=== PATIENT | female | born 1970 | race Caucasian/White ===

== ENCOUNTER → 2024-03-03 06:26 | Day surgery (SDC) | payer OTHER, SELFPAY | LOC: GI 06:26 | PROVIDERS: ATTENDING PHYSICIAN Internal Medicine Gastroenterology | DX: Z12.11 Encounter for screening for malignant neoplasm of colon (principal); K63.89 Other specified diseases of intestine; K64.0 First degree hemorrhoids; K62.1 Rectal polyp; Z86.010 Personal history of colon polyps | CPT/HCPCS: 45380; 88305 ==

== ENCOUNTER 2024-07-03 08:55 | Emergency (ER) | payer OTHER, SELFPAY ==
[2024-07-03 09:18] VITALS: BP 136/81
[2024-07-03 10:25] LABS: % Basophils 0.3 % (0-2); % Eosinophils 0.3 % (0-6); % Immature Granulocytes 0.4 % (0-0.5); % Lymphocytes 8.1 % (20.5-51.1); % Monocytes 6.4 % (1.7-9.3); % Neutrophils 84.5 % (42.2-75.2); Absolute Immature Granulocytes 0.1 10^3/uL (0-0.05); Absolute Lymphocytes 1.3 10^3/uL (1.2-3.4); Absolute Neutrophils 13.1 10^3/uL (1.4-6.5); Hematocrit 35.8 % (37.0-47.0); Hemoglobin 12.2 g/dL (12.0-16.0); Mean Corp Hgb Conc. 34.1 g/dL (33.0-37.0); Mean Corpuscular Hgb 29.1 pg (27.0-31.0); Mean Corpuscular Volume 85.4 fL (81.0-99.0); Nucleated Red Blood Cells % 0 %; Platelet Count 237 10^3/uL (130-400); Red Blood Cell Count 4.19 10^6/uL (4.20-5.40); Red Cell Dist. Width 15.3 % (11.5-14.5); White Blood Cell Count 15.5 10^3/uL (4.8-10.8)
[2024-07-03 10:34] LABS: Urine Albumin Negative (Neg - Trace); Urine Bilirubin Negative (Negative); Urine Character Clear (Clear); Urine Color Yellow; Urine Glucose Negative (Negative); Urine Ketone Negative (Negative); Urine Leukocyte Negative (Negative); Urine Nitrite Negative (Negative); Urine Occult Blood Negative (Negative); Urine Specific Gravity 1.015 (<1.030); Urine Urobilinogen Negative (Neg - 1+)
[2024-07-03 10:52] LABS: ALT (SGPT) 13 U/L (0-35); AST (SGOT) 16 U/L (14-36); Albumin 4.2 g/dl (3.5-5.0); Alkaline Phosphatase 81 U/L (38-126); Blood Urea Nitrogen 17 mg/dl (7-17); Calcium 8.4 mg/dl (8.4-10.2); Carbon Dioxide 25 mmol/L (22-30); Chloride 98 mmol/L (98-107); Glucose 118 mg/dl (70-99); Potassium 3.5 mmol/L (3.5-5.1); Sodium 133 mmol/L (135-145); Total Bilirubin 1.1 mg/dl (0.2-1.3); eGFR > 60.00
[2024-07-03 11:16] LABS: HCG, Serum Qualitative Screen Negative
--- NOTE | 2024-07-03 11:25 | ED.GENMED ---
History of Present Illness
General
Chief Complaint: Abdominal Pain
Time Seen by Provider: 07/03/24 10:57
History of Present Illness
History of Present Illness:
54-year-old female with history of hypertension presents to the emergency department for evaluation of generalized lower abdominal pain for the past 24 hours. No fevers but does report chills. Denies any diarrhea, nausea, or vomiting. Denies
dysuria or urgency but notes urinary dribbling after completing urination. Prior abdominal surgeries include appendectomy and
Review of Systems
Review of Systems
Allergies reviewed?: Yes
All Other Systems: ROS reviewed and negative except as documented in HPI and ROS
Phy Exam
Physical Exam
Physical Exam:
GEN: Well appearing, NAD, WDWN
HEENT: Oral mucosa moist, no scleral icterus
Cardiac: Regular rate
Lung: No respiratory distress, no tachypnea
Abdomen: Soft, focal tenderness diffusely to the lower abdomen, no rigidity
MSK: No gross deformity or injuries
Skin: Good color, no pallor or jaundice, no rashes
Neuro: AO x3, moves all extremities freely
Psych: Calm, cooperative
Course
Orders/Labs/Results
Orders:
Orders
07/03/24 09:22
Test Result ONCE
07/03/24 09:57
Complete Blood Count/With Diff Urgent
Comprehensive Metabolic Panel Urgent
HCG, Serum Qualitative Screen Urgent
Urinalysis Reflex To Culture Urgent
Date Specimen was Collected: 07/03/24
Time Specimen was Collected: 09:22
07/03/24 11:21
CT Abd/Pel (IV only)-DH only Urgent
Comment:
Reason For Exam: lower abd pain
Abnormal Lab Results
07/03/24
09:57
WBC 15.5 H 10^3/uL
(4.8-10.8)
RBC 4.19 L 10^6/uL
(4.20-5.40)
Hct 35.8 L %
(37.0-47.0)
RDW 15.3 H %
(11.5-14.5)
Abs Immat Gran (auto) 0.1 H 10^3/uL
(0-0.05)
Absolute Neuts (auto) 13.1 H 10^3/uL
(1.4-6.5)
Absolute Monos (auto) 1.0 H 10^3/uL
(0.1-0.6)
Neutrophils % 84.5 H %
(42.2-75.2)
Lymphocytes % 8.1 L %
(20.5-51.1)
Sodium 133 L mmol/L
(135-145)
Glucose 118 H mg/dl
(70-99)
07/03/24 09:57
07/03/24 09:57
Vital Signs
Initial and Last Documented VS:
Initial Vital Signs
Temp Pulse Resp BP Pulse Ox
98.2 F 81 16 136/81 98
07/03/24 09:18 07/03/24 09:18 07/03/24 09:18 07/03/24 09:18 07/03/24 09:18
Last Documented Vital Signs
Temp Pulse Resp BP Pulse Ox
98.2 F 78 18 109/69 99
07/03/24 09:18 07/03/24 11:56 07/03/24 11:56 07/03/24 11:56 07/03/24 11:56
MDM/Problems Addressed
MDM/Problems Addressed:
Patient found to have a large left adnexal cyst. Patient is premenopausal thus this could represent a hemorrhagic ovarian cyst. Did not have sudden worsening or colicky pain to suggest acute torsion. Encouraged to follow-up with her [employer] SUPERVISOR to
discuss outpatient MRI, clinically stable for outpatient management
*Critical Care Note
Total Time (30-74mins, 75-104mins- exclusive of procedures): Not Applicable
ED Attending Note
-
Portions of this chart may have been created with voice recognition software.� Occasional wrong word or��sound alike� substitutions may have occurred due to the inherent limitations of voice recognition software.
Discharge Plan
Departure
Patient Disposition: Home (Routine Discharge)
Date of Disposition: 07/03/24
Time of Disposition: 14:49
Patient with high blood pressure during this ER visit?: No
Discharge Problem:
Mass of left ovary
Instructions: Ovarian Cyst (DC)
Referrals:
Jose R Dangelo MD [Family Provider] -
Alva Brantley MD [Active] -
Activity Restrictions/Additional Instructions:
Your CT scan shows a large cyst/mass in the L ovary area. The severity of this is not yet clear
Call [employer] S[employer] SUPERVISOR immediately for follow up
If you cannot get an urgent appointment, have your primary doctor send you for an abdominal MRI for further evaluation
If your pain SUDDENLY worsens, return to the ER
Interventions
Interventions:
*Risk Screen - Suicide Last Done: 07/03/24 09:18
*General Assessment Last Done: 07/03/24 11:56
*Neglect/Abuse Screening Last Done: 07/03/24 09:18
*ED COVID-19 Vaccine History Last Done: 07/03/24 11:56
*Nursing Disposition Last Done: 07/03/24 15:05
PS-Mnyzyz-Eqkysrylaf Assessment Last Done: 07/03/24 11:56
Discharge Date and Time
Discharge Date/Time: 07/03/24 15:06
Print Language: LITHUANIAN
[2024-07-03 11:56] VITALS: BP 109/69
== END 2024-07-03 15:06 | disposition home or self-care (01) ==
LOC: EMR 08:55
PROVIDERS: Emergency Medicine; EMERGENCY PHYSICIAN Emergency Medicine; FAMILY PHYSICIAN Internal Medicine
DX: N83.202 Unspecified ovarian cyst, left side (principal); I10 Essential (primary) hypertension
CPT/HCPCS: 99284; 74177; 80053; 81003; 84703; 85025; Q9967

== ENCOUNTER 2024-07-10 15:10 | Emergency (ER) | payer OTHER, SELFPAY ==
[2024-07-10 15:13] VITALS: BP 129/96
[2024-07-10 15:45] LABS: % Basophils 0.4 % (0-2); % Eosinophils 1.3 % (0-6); % Immature Granulocytes 0.6 % (0-0.5); % Monocytes 3.4 % (1.7-9.3); % Neutrophils 86.3 % (42.2-75.2); Absolute Eosinophils 0.1 10^3/uL (0-0.7); Absolute Lymphocytes 0.6 10^3/uL (1.2-3.4); Absolute Monocytes 0.2 10^3/uL (0.1-0.6); Hematocrit 31.2 % (37.0-47.0); Hemoglobin 10.6 g/dL (12.0-16.0); Mean Corpuscular Hgb 29.1 pg (27.0-31.0); Mean Corpuscular Volume 85.7 fL (81.0-99.0); Mean Platelet Volume 8.9 fL (7.4-10.4); Nucleated Red Blood Cells % 0 %; Platelet Count 285 10^3/uL (130-400); Red Blood Cell Count 3.64 10^6/uL (4.20-5.40); Red Cell Dist. Width 14.6 % (11.5-14.5)
[2024-07-10 15:57] LABS: Lactic Acid 1.1 mmol/L (0.7-2.0)
[2024-07-10 15:59] LABS: HCG, Serum Qualitative Screen Negative
[2024-07-10 16:03] LABS: ALT (SGPT) 15 U/L (0-35); AST (SGOT) 18 U/L (14-36); Albumin 3.9 g/dl (3.5-5.0); Alkaline Phosphatase 127 U/L (38-126); Blood Urea Nitrogen 14 mg/dl (7-17); Calcium 8.7 mg/dl (8.4-10.2); Carbon Dioxide 22 mmol/L (22-30); Chloride 95 mmol/L (98-107); Glucose 106 mg/dl (70-99); Sodium 129 mmol/L (135-145); Total Bilirubin 0.6 mg/dl (0.2-1.3); Total Protein 6.5 g/dl (6.3-8.2); eGFR > 60.00
[2024-07-10 16:25] LABS: COVID-19 Antigen Negative (Negative)
[2024-07-10] MEDS: ZOFRAN 4 MG IV (18:16)
[2024-07-10] MEDS: NSS 1000 IV (18:16)
[2024-07-10] MEDS: TORADOL 15 MG IV (18:17)
--- NOTE | 2024-07-10 19:24 | ED.GENMED ---
History of Present Illness
<Aldo Lindsey MD - Last Filed: 07/10/24 19:25>
General
Chief Complaint: Fever
Time Seen by Provider: 07/10/24 16:39
<Lindsey Foster PA-C - Last Filed: 07/10/24 20:46>
General
Source: patient
Exam Limitations: none
Nursing documentation reviewed up to this point in time: agreed with
History of Present Illness
History of Present Illness:
54-year-old female with past medical history of hypertension, GERD, who presents emergency department today with concerns of left lower quadrant abdominal pain and fevers and chills. The abdominal pain has been going on for the past week or so now.
She was seen here in our emergency department on 07/03/2024 and diagnosed with a left ovarian mass. She saw her DRAPERY WORKER Dr. Henderson with [facility] and was referred to get an MRI of the abdomen. The MRI revealed complex left ovarian cyst and
solid mass with hydrosalpinx but no stranding of the surrounding fat. She was subsequently referred to see Dr. Vega, oncologist. She has appointment scheduled to see him this July 14. Patient reports that yesterday, she started to
feel fevers and chills and bodyaches. She is at work today when she felt super warm and diaphoretic. She denies any vaginal discharge, any new sexual partners, any dysuria, hematuria. She notes nausea but denies any vomiting. She notes decreased
appetite and decreased oral intake. She let her DRAPERY WORKER know the symptoms and she was concerned about infection and so her DRAPERY WORKER started her on Flagyl and doxycycline. Patient had 2 doses of these antibiotics.
Review of Systems
<Lindsey Foster PA-C - Last Filed: 07/10/24 20:46>
Review of Systems
All Other Systems: ROS reviewed and negative except as documented in HPI and ROS
Phy Exam
<Lindsey Foster PA-C - Last Filed: 07/10/24 20:46>
Physical Exam
Physical Exam:
General: Patient is well appearing and in no acute distress; non-toxic
Skin: Warm and dry, no rashes or lesions
Head: Normocephalic, atraumatic
Eyes: Sclera non-icteric. EOMs intact. PERRLA.
Cardiac: Patient tightly tachycardic otherwise regular rhythm, no murmur
Peripheral Vascular: No lower extremity swelling or edema
Pulm: Normal respiratory effort, no wheezes, rales, or rhonchi
Abdomen: Left lower quadrant abdominal tenderness to palpation no palpable abdominal mass. No rebound tenderness, no guarding
Neuro: CN II-XII intact, no focal neurologic deficits.
Psychiatric: Appropriate mood and affect.
Course
<Aldo Lindsey MD - Last Filed: 07/10/24 19:25>
Orders/Labs/Results
Orders:
Orders
07/10/24 15:19
Test Result ONCE
07/10/24 15:29
COVID-19 Antigen Urgent
Source: Nasal Swab
Complete Blood Count/With Diff Urgent
Comprehensive Metabolic Panel Urgent
HCG, Serum Qualitative Screen Urgent
Lactic Acid Urgent
Influenza A+B Rapid Molecular Urgent
DIDI Source: Nasal Swab
Specimen Description:
07/10/24 17:50
Ketorolac [Toradol] 15 mg IV NOW STA
Ondansetron Injectable [Zofran] 4 mg IV NOW STA
07/10/24 17:51
0.9% Sodium Chloride 1000 ml [Nss] 1,000 ml IV BOLUS
07/10/24 19:17
Acetaminophen [Tylenol] 1,000 mg PO NOW STA
Abnormal Lab Results
07/10/24
15:29
RBC 3.64 L 10^6/uL
(4.20-5.40)
Hgb 10.6 L g/dL
(12.0-16.0)
Hct 31.2 L %
(37.0-47.0)
RDW 14.6 H %
(11.5-14.5)
Absolute Lymphs (auto) 0.6 L 10^3/uL
(1.2-3.4)
Immature Gran % 0.6 H %
(0-0.5)
Neutrophils % 86.3 H %
(42.2-75.2)
Lymphocytes % 8.0 L %
(20.5-51.1)
Sodium 129 L mmol/L
(135-145)
Chloride 95 L mmol/L
(98-107)
Glucose 106 H mg/dl
(70-99)
Alkaline Phosphatase 127 H U/L
(38-126)
07/10/24 15:29
07/10/24 15:29
Vital Signs
Initial and Last Documented VS:
Initial Vital Signs
Temp Pulse Resp BP Pulse Ox
101.2 F H 108 16 129/96 98
07/10/24 15:13 07/10/24 15:13 07/10/24 15:13 07/10/24 15:13 07/10/24 15:13
Last Documented Vital Signs
Temp Pulse Resp BP Pulse Ox
99.0 F 108 16 123/88 98
07/10/24 20:30 07/10/24 15:13 07/10/24 15:13 07/10/24 20:09 07/10/24 20:09
Cheryllt;Lindsey Fotser PA-C - Last Filed: 07/10/24 20:46>
Orders/Labs/Results
Orders:
Orders
07/10/24 15:19
Test Result ONCE
07/10/24 15:29
COVID-19 Antigen Urgent
Source: Nasal Swab
Complete Blood Count/With Diff Urgent
Comprehensive Metabolic Panel Urgent
HCG, Serum Qualitative Screen Urgent
Lactic Acid Urgent
Influenza A+B Rapid Molecular Urgent
DIDI Source: Nasal Swab
Specimen Description:
07/10/24 17:50
Ketorolac [Toradol] 15 mg IV NOW STA
Ondansetron Injectable [Zofran] 4 mg IV NOW STA
07/10/24 17:51
0.9% Sodium Chloride 1000 ml [Nss] 1,000 ml IV BOLUS
07/10/24 19:17
Acetaminophen [Tylenol] 1,000 mg PO NOW STA
Abnormal Lab Results
07/10/24
15:29
RBC 3.64 L 10^6/uL
(4.20-5.40)
Hgb 10.6 L g/dL
(12.0-16.0)
Hct 31.2 L %
(37.0-47.0)
RDW 14.6 H %
(11.5-14.5)
Absolute Lymphs (auto) 0.6 L 10^3/uL
(1.2-3.4)
Immature Gran % 0.6 H %
(0-0.5)
Neutrophils % 86.3 H %
(42.2-75.2)
Lymphocytes % 8.0 L %
(20.5-51.1)
Sodium 129 L mmol/L
(135-145)
Chloride 95 L mmol/L
(98-107)
Glucose 106 H mg/dl
(70-99)
Alkaline Phosphatase 127 H U/L
(38-126)
07/10/24 15:29
07/10/24 15:29
Vital Signs
Temp: 99.0 F
Initial and Last Documented VS:
Initial Vital Signs
Temp Pulse Resp BP Pulse Ox
101.2 F H 108 16 129/96 98
07/10/24 15:13 07/10/24 15:13 07/10/24 15:13 07/10/24 15:13 07/10/24 15:13
Last Documented Vital Signs
Temp Pulse Resp BP Pulse Ox
99.0 F 108 16 123/88 98
07/10/24 20:30 07/10/24 15:13 07/10/24 15:13 07/10/24 20:09 07/10/24 20:09
Cheryllt;Lindsey Foster PA-C - Last Filed: 07/10/24 20:46>
MDM/Problems Addressed
Differential Diagnosis Includes:
Ovarian cyst, viral syndrome, ovarian cancer, pelvic inflammatory disease, intra abdominal abscess, gastroenteritis
MDM/Problems Addressed:
54-year-old female with past medical history of hypertension, GERD, anxiety presents emergency department today with concerns of bodyaches and fevers and chills. She is associated abdominal pain and nausea. She is recently diagnosed with a left
ovarian mass. She has appointment to see oncology in 4 days. She started to develop fevers and chills yesterday. In the ER, her temperature was 101.2. I did review patient's MRI report which showed an ovarian mass with hydro salpinx. In light
of patient's fever and known hydrosalpinx with ovarian mass I was concerned about possible pelvic inflammatory disease however patient has no risk factors for this. I called her DRAPERY WORKER on-call and reviewed case, since patient is generally
well-appearing, nontoxic, has a normal white blood cell count, has no PID risk factors, we suspect that symptoms likely represent malignancy rather than acute infection. Do not feel patient needs to stay in hospital for IV antibiotics at this time.
Patient was given Toradol and IV fluids for pain. Patient was already started on IV antibiotics to cover for possible infection. Patient sodium today was 129 which I suspect is from decreased oral intake, patient was given IV fluids. Patient
given prescription for Zofran. Advised patient to follow-up with Dr. Vega from oncology on Sunday. Patient stable for discharge.
Chronic conditions affecting care:
htn, GERD, anxiety
<Lindsey Foster PA-C - Last Filed: 07/10/24 20:46>
*Pulse Oximetry
Patient hypoxic: no
*Critical Care Note
Total Time (30-74mins, 75-104mins- exclusive of procedures): Not Applicable
Data Reviewed
Review of Other/Old Records Reveals: Records (Reviewed ER physician report from 07/03/2024 or patient seen for mass of left ovary review) and Discharge Summary (No previous hospital discharge summary to review )
Source: patient and records
Prescriptions/Medications Considered But Not Given:
n/a
<Lindsey Foster PA-C - Last Filed: 07/10/24 20:46>
Patient Management
Discussion with other providers: Set Painter (Dr. Schwab)
Escalation/DeEscalation of care consider admission/obs:
Reviewed case with my attending
Patient stable for discharge
ED Attending Note
<Aldo Lindsey MD - Last Filed: 07/10/24 19:25>
-
Portions of this chart may have been created with voice recognition software.� Occasional wrong word or��sound alike� substitutions may have occurred due to the inherent limitations of voice recognition software.
Discharge Plan
Departure
Patient Disposition: Home (Routine Discharge)
Date of Disposition: 07/10/24
Time of Disposition: 19:30
Patient with high blood pressure during this ER visit?: Yes
Condition: Good
Discharge Problem:
Fever, Mass of left ovary
Instructions: Fever, Adult (DC), BLOOD PRESSURE
Prescriptions:
New
ondansetron 4 mg Tablet,Disintegrating
4 mg PO TIDPRN PRN (Reason: nausea/vomiting) Qty: 12 0RF
Referrals:
Jose R Dangelo MD [Family Provider] -
Activity Restrictions/Additional Instructions:
Please follow up with your with Dr. Vega as scheduled on Sunday. Please call his office and say that you were seen in the emergency department for fever.
You can take Tylenol again in 4 hours.
Please continue your antibiotics.
PLEASE RETURN EMERGENCY DEPARTMENT SHOULD YOU EXPERIENCE LETHARGY, INTRACTABLE FEVERS OR CHILLS, INTRACTABLE NAUSEA VOMITING, DIZZINESS, LIGHTHEADEDNESS, CHEST PAIN, SHORTNESS OF BREATH, SYNCOPAL EPISODES, OR ANY OTHER SIGNS OR SYMPTOMS WORRISOME TO
YOU
Interventions
Interventions:
*Risk Screen - Suicide Last Done: 07/10/24 15:13
*General Assessment Last Done: 07/10/24 20:09
*Neglect/Abuse Screening Last Done: 07/10/24 15:13
*ED COVID-19 Vaccine History Last Done: 07/10/24 20:09
*Nursing Disposition Last Done: 07/10/24 20:10
ED- Neurological Assessment Last Done: 07/10/24 20:09
ED-Skin Assessment Last Done: 07/10/24 20:09
Discharge Date and Time
Discharge Date/Time: 07/10/24 20:11
Print Language: MALDIVIAN
[2024-07-10] MEDS: TYLENOL 1000 MG PO (19:29)
[2024-07-10 20:09] VITALS: BP 123/88
== END 2024-07-10 20:11 | disposition home or self-care (01) ==
LOC: EMR 15:10
PROVIDERS: Emergency Medicine; EMERGENCY PHYSICIAN Emergency Medicine; FAMILY PHYSICIAN Internal Medicine
DX: R50.9 Fever, unspecified (principal); N83.8 Other noninflammatory disorders of ovary, fallopian tube and broad ligament; N70.11 Chronic salpingitis; I10 Essential (primary) hypertension; K21.9 Gastro-esophageal reflux disease without esophagitis; F41.9 Anxiety disorder, unspecified
CPT/HCPCS: 96374; 96375; 96361; 99284; 80053; 83605; 84703; 85025; 87502; 87811